=== PATIENT | female | born 1995 | race Caucasian/White ===

== ENCOUNTER 2016-07-12 20:41 | Inpatient (IN) | payer OTHER ==
--- OUTSIDE RECORDS SUMMARY | 2016-07-12 20:45 | XMS REPORT | Continuity of Care Document ---
:1995 Author Organization [facility] [place] [address] Care Team Providers Name Role Phone Provider, None Per Patient Primary Care Provider Unavailable Source Comments This disclosure is being made pursuant to the [employer] program and maynot contain all information available regarding this patient.[facility] Active Allergies and Adverse Reactions Not on File Current Medications Be aware that medications may not be up to date as of this document. Alwaysverify current medications with the patient. Prescription Sig. Disp. Refills Start Date End Date Status medroxyPROGESTERone Inject 150 mg Active (DEPO-PROVERA) 150 MG/ML into the muscle injection every 3 (three) months. 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[employer] Pulse 85 02/27/2012 8:17 AM MANAGER [employer] Temperature 36.7 C (98 F) 02/27/2012 8:17 AM MANAGER [employer] Respiratory Rate 17 02/27/2012 8:17 AM MANAGER [employer] Height - - Weight 63.504 kg (140 lb) 02/27/2012 3:20 AM MANAGER [employer]UG [employer]AFET[employer] Body Mass Index - - Oxygen Saturation 97% 02/27/2012 8:17 AM MANAGER [employer]UG [employer]AFET[employer] Plan of Care Health Maintenance Due Date Last Done Comments HPV Vaccine (9-26YO) (1 of 3 - Female/Unknown 3 Dose 11/25/2006 Series) Chlamydia Screening 02/26/2013 02/27/2012 Tetanus/Pertussis (1 - Tdap) 11/25/2014 Retired-INFLUENZA VACCINE 11/13/2015 Results from Last 3 Months Not on file
--- OUTSIDE RECORDS SUMMARY | 2016-07-12 20:45 | XMS REPORT | Continuity of Care Document ---
:1995 Author Organization [facility] ([facility]) Address [address] [place] [address] Phone [phone] Care Team Providers Name Role Phone Unavailable Primary Care Provider Unavailable Source Comments This disclosure is being made pursuant to the Care Everywhere program, applicable federal and state laws, and may not contain all informaitonavailable regarding this patient.[facility] ([facility]) Active Allergies and Adverse Reactions Not on File Current Medications Not on file Active Problems Not on file Social History Tobacco Use Types Packs/Day Years Used Date Never Assessed Plan of Care Health Maintenance Due Date Last Done Comments Hepatitis B Vaccine (1 of 3 - Primary Series) 1995 HPV Vaccine (1 of 3 - Female/Unknown 3 Dose Series) 11/25/2006 Tdap Vaccine 11/25/2006 Meningococcal Vaccine (1 of 1) 2011 Lipid Disorder Screening 11/25/2013 MMR Vaccine 11/25/2013 Td Vaccine 11/25/2013 Varicella Vaccine (1 of 2 - Adult - No Evidence of 11/25/2013 Immunity) Influenza Vaccine: Seasonal (#1) 10/13/2015 Results from Last 3 Months Not on file
--- OUTSIDE RECORDS SUMMARY | 2016-07-12 21:08 | XMS REPORT | Continuity of Care Document ---
:1995 Author Organization [facility] ([facility]) Address [address] [place] [address] Phone [phone] Care Team Providers Name Role Phone Unavailable Primary Care Provider Unavailable Source Comments This disclosure is being made pursuant to the Care Everywhere program, applicable federal and state laws, and may not contain all informaitonavailable regarding this patient.[facility] ([facility]) Active Allergies and Adverse Reactions Not [...]
--- OUTSIDE RECORDS SUMMARY | 2016-07-12 21:08 | XMS REPORT | Continuity of Care Document ---
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 Pulse 85 02/27/2012 8:17 AM MODELING MANAGER Temperature 36.7 C (98 F) 02/27/2012 8:17 AM MODELING MANAGER Respiratory Rate 17 02/27/2012 8:17 AM MODELING MANAGER Height - - Weight 63.504 kg (140 lb) 02/27/2012 3:20 AM MODELING MANAGER Body Mass Index - - Oxygen Saturation 97% 02/27/2012 8:17 AM MODELING MANAGER Plan of Care Health Maintenance Due Date Last Done Comments HPV Vaccine (9-26YO) (1 of 3 - Female/Unknown 3 Dose 11/25/2006 Series) Chlamydia Screening 02/26/2013 02/27/2012 Tetanus/Pertussis (1 - Tdap) 11/25/2014 Retired-INFLUENZA VACCINE 11/13/2015 Results from Last 3 Months Not on file
[2016-07-12] MEDS ORDERED: LIDOCAINE HCL 50 ML VIAL PERI PRN (21:09)
[2016-07-12] MEDS ORDERED: RINGERS SOLUTION,LACTATED 1,000 ML IV PRN (21:09)
[2016-07-12] MEDS ORDERED: RINGERS SOLUTION,LACTATED 1,000 ML IV ONE (21:09)
[2016-07-12] MEDS ORDERED: OXYTOCIN/DEXTROSE 5%-WATER 30 UNITS/500 ML BAG IV ONE ×2 (21:09→21:46)
[2016-07-12] MEDS ORDERED: BUPIVACAINE HCL/PF 30 ML VIAL EP ONE (21:11)
[2016-07-12] MEDS ORDERED: NALOXONE HCL 1 MG/1 ML SYRG IV PRN (21:11)
[2016-07-12] MEDS ORDERED: ONDANSETRON HCL/PF 2 MG/ML VIAL IV PRN (21:11)
[2016-07-12] MEDS ORDERED: BUPIVACAINE HCL/0.9 % NACL/PF 250 ML EP PRN (21:11)
[2016-07-12] MEDS ORDERED: HYDROCORTISONE 30 APPL TUBE TP PRN (21:46)
[2016-07-12] MEDS ORDERED: BISACODYL 10 MG SUPP.RECT RC PRN (21:46)
[2016-07-12] MEDS ORDERED: SENNOSIDES 8.6 MG TABLET PO PRN (21:46)
[2016-07-12] MEDS ORDERED: diphenhydrAMINE HCL 25 MG CAPSULE PO PRN (21:46)
[2016-07-12] MEDS ORDERED: BENZOCAINE/MENTHOL 81 SPRAY CAN TP PRN (21:46)
[2016-07-12 21:52] LABS: Hematocrit 36.1 % (37.0-47.0); Hemoglobin 12.5 gm/dL (12.5-16.0); Mean Corpuscular Hemoglobin 32.6 pg (27-31); Mean Corpuscular Hgb Conc 34.6 g/dl (32-36); Mean Platelet Volume 11.2 fl (6.0-9.5); Neutrophil # 8.9 K/mm3 (1.3-6.0); Neutrophil % 74.1 % (42-75.0); Platelet Count 169 K/mm3 (150-450); Red Blood Count 3.84 M/mm3 (4.2-5.4); Red Cell Distribution Width 12.9 % (11.5-14.0)
--- NOTE | 2016-07-12 22:16 | HP ---
Chief Complaint - Chief Complaint Date of Service: 07/12/16 Chief Complaint: contractions History of Present Illness: 20 yo, CF, at 40 weeks, admitted in labor with contractions started at noon today. She was dilated to 8 cm, 100% and +1 at admission. Denies bleeding or leaking fluid. care was with Dr. Mike at [facility] in [place], [place]. was complicated by perterm labor at 34 weeks , dilated to 3 cm then and received steroid x 2 doses and magnesium for tocolysis per patient. GBS was negative per patient. POBGYN: x 1, June 2015 (40.2 w, girl and no complications) - Patient's Past Medical History Patient History - Medical: No pertinent hx - Family History Mother Family History - Medical: No pertinent hx Father Family History - Medical: No pertinent hx Brother Family History - Medical: No pertinent hx Grandmother-Paternal Family History - Medical: No pertinent hx Grandfather-Paternal Family History - Medical: No pertinent hx Grandfather-Maternal Family History - Medical: No pertinent hx Grandmother-Maternal Family History - Medical: No pertinent hx - Social History Smoking Status: Current every day smoker Cigarettes Packs Per Day: 10 Alcohol Use: none Drug Use: none - Immunizations Immunizations Up to Date: Yes Hx Pneumococcal Vaccination: No History of Influenza Vaccine: No Review Of Systems (GEN) - Review of Systems Abdominal: Present: Abdominal Pain - contractions Genitourinary: Present: Other - no bleeding, no leaking fluid Misc: All systems neg except as marked Immunizations: IMMUNIZATION HX Immunizations Up to Date Yes History of Influenza Vaccine No Hx Pneumococcal Vaccination No Allergies/Adverse Reactions: Allergies Allergy/AdvReac Type Severity Reaction Status Date / Time No Known Allergies Allergy Verified 07/12/16 21:07 Home Medications: HOME MEDICATIONS Vit#96/Ferrous Fum/FA [ S] 1 tab PO DAILY 06/23/15 [Last Taken 07/12/16] Exam - Exam Vital Signs: Vital Signs - Last Taken Temp 36.4 C L 06/25/15 06:50 Pulse Resp BP 105/59 06/25/15 06:50 Pulse Ox Constitutional: Present: Alert, Oriented x3, Cooperative Breasts: Present: Exam deferred Respiratory: Present: lungs clear, normal breath sounds, no respiratory distress Cardiovascular/Chest: Present: normal peripheral pulses, regular rate, rhythm, no gallop, no murmur Abdomen: Present: soft, nontender, nondistended, other - gravid /Rectal: Present: Other - cervix: dilated to 8 cm, 100%, +1 Extremity: Present: normal range of motion, no pedal edema, no calf tenderness Skin Exam: Present: normal color, warm/dry, no cyanosis Appearance: Present: appropriate appearance Eye contact: Present: cooperative, good eye contact, normal speech Diagnostic Studies: Abnormal Lab Results 07/12/16 Range/Units 21:50 WBC 12.0 H (4.0-10.5) K/mm3 RBC 3.84 L (4.2-5.4) M/mm3 Hct 36.1 L (37.0-47.0) % MCH 32.6 H (27-31) pg MPV 11.2 H (6.0-9.5) fl Immature Gran % (Auto) 0.50 H (0.001-0.429) % Immature Gran # (Auto) 0.06 H (0.000-0.0310) K/mm3 Lymphocytes % 19.8 L (20-51) % Neutrophils # 8.9 H (1.3-6.0) K/mm3 Laboratory Results WBC 12.0 K/mm3 (4.0-10.5) H 07/12/16 21:50 RBC 3.84 M/mm3 (4.2-5.4) L 07/12/16 21:50 Hgb 12.5 gm/dL (12.5-16.0) 07/12/16 21:50 Hct 36.1 % (37.0-47.0) L 07/12/16 21:50 MCV 94.0 fl (78-100) 07/12/16 21:50 MCH 32.6 pg (27-31) H 07/12/16 21:50 MCHC 34.6 g/dl (32-36) 07/12/16 21:50 RDW 12.9 % (11.5-14.0) 07/12/16 21:50 Plt Count 169 K/mm3 (150-450) 07/12/16 21:50 MPV 11.2 fl (6.0-9.5) H 07/12/16 21:50 Immature Gran % (Auto) 0.50 % (0.001-0.429) H 07/12/16 21:50 Immature Gran # (Auto) 0.06 K/mm3 (0.000-0.0310) H 07/12/16 21:50 Neutrophils % 74.1 % (42-75.0) 07/12/16 21:50 Lymphocytes % 19.8 % (20-51) L 07/12/16 21:50 Monocytes % 4.5 % (0.0-9) 07/12/16 21:50 Eosinophils % 0.8 % (0.0-3.0) 07/12/16 21:50 Basophils % 0.3 % (0.0-1.0) 07/12/16 21:50 Nucleated RBC % 0.0 k/mm3 (0-1) 07/12/16 21:50 Neutrophils # 8.9 K/mm3 (1.3-6.0) H 07/12/16 21:50 Lymphocytes # 2.4 k/mm3 (1.5-3.5) 07/12/16 21:50 Monocytes # 0.5 k/mm3 (0.0-1.0) 07/12/16 21:50 Eosinophils # 0.1 k/mm3 (0.0-0.7) 07/12/16 21:50 Absolute Basophils 0.0 k/mm3 (0.0-0.1) 07/12/16 21:50 labs 05/28/16: blood type: O pos hgb 11.3 hct 33.1 rubella immune VDRL neg UDS neg HBSAg neg Hep C neg HIV neg GBS (06/13/16): neg Assessment/Plan - Narrative Narrative: FHR: reassuring Kyle: contraction Q1-2 min A: 20 yo, CF, at 40 weeks in labor, dilated to 8 cm, cephalic, GBS neg. S/ p steroid x 2 at 34 w for labor. Plan: admit labs CBC, type and screen. IV with LR bolus, then 125 ml/h. epidural if time permitted. expect vaginal delivery soon. Jose Sykes MD
--- NOTE | 2016-07-12 22:29 | OR ---
Operative Report - Dictated Report Narrative: Spontaneous Vaginal Delivery Note: 20 yo, CF, at 40 weeks, admitted in labor, cervix dilated to 8 cm, 100% effaced and at +1. GBS was negative. care at [facility] in [place], [place]. was complicated by labor at 34 weeks and received steroid x 2 doses at the time. Patient progressed to complete quickly without complications. The perineum was cleaned with betadine. AROM performed before delivery with small cloudy fluid, but no meconium. Pushed with contractions and descent. Head delivered in OA over the perineum. Tight nuchal cord x 1 reduced after head delivered. The anterior shoulder delivered, followed by the posterior shoulder and the rest of the baby without difficulty. Baby cried at perineum. Mouth and nose were bulb-suctioned. Cord was clamped, and then cut by the patient herself. Baby placed on maternal abdomen for drying and care by the nursing. Cord blood was obtained. Placenta delivered intact with 3 vessel cord. Pitocin drip started after placenta delivered. Exam of the perineum, vaginal and cervix revealed intact perineum without any laceration. Fundus was massaged and firm. Bleeding was minimal. Mother and baby tolerated the delivery well. EBL 100 ml. Infant: female, 3022 grams, 6 lbs and 10.5 oz. 8/9. Time of delivery: 21: 18. Jose Sykes MD History for Definition: * The number of deliveries resulting in a live the patient experienced prior to current hospitalization * The previous delivery of live twins or any live multiple gestation is considered one live event. *If primagravida or nulliparous is documented select zero for the number of previous live births. Live Events: 1
[2016-07-12 22:59] LABS: Cocaine Ur Negative (NEGATIVE); Urine Barbiturate Negative (NEGATIVE); Urine Benzodiazepines Negative (NEGATIVE); Urine Opiates Negative (NEGATIVE); Urine PCP Negative (NEGATIVE); Urine THC Negative (NEGATIVE)
[2016-07-13] MEDS: IBUPROFEN 800 MG TABLET PO PRN ×3 (00:23→17:43)
[2016-07-13] MEDS: HYDROcodone/ACETAMINOPHEN 1 EACH TABLET PO PRN ×5 (01:08→22:21)
[2016-07-13] MEDS: DOCUSATE SODIUM 100 MG CAPSULE PO SCH ×2 (10:49→22:21)
--- NOTE | 2016-07-13 17:28 | PN ---
Subjective - Date and Time Seen Date: 07/13/16 Subjective Narrative: day 1, s/p doing well. . normal lochia. ambulating well. Objective - Vitals Vitals: Last Vital Signs Temp 36.9 C 07/13/16 06:30 Pulse 79 07/13/16 06:30 Resp 20 07/13/16 06:30 BP 106/50 07/13/16 06:30 Pulse Ox 96 07/13/16 06:30 - Abnormal Lab Findings Abnormal Lab Findings: Abnormal Lab Results 07/12/16 Range/Units 21:50 WBC 12.0 H (4.0-10.5) K/mm3 RBC 3.84 L (4.2-5.4) M/mm3 Hct 36.1 L (37.0-47.0) % MCH 32.6 H (27-31) pg MPV 11.2 H (6.0-9.5) fl Immature Gran % (Auto) 0.50 H (0.001-0.429) % Immature Gran # (Auto) 0.06 H (0.000-0.0310) K/mm3 Lymphocytes % 19.8 L (20-51) % Neutrophils # 8.9 H (1.3-6.0) K/mm3 - Exam Constitutional: Present: Alert, Oriented x3, Cooperative Respiratory: Present: no respiratory distress Cardiovascular/Chest: Present: normal peripheral pulses Abdomen: Present: soft, nontender, nondistended, other - fundus firm at umbilicus Extremity: Present: normal range of motion, no pedal edema, no calf tenderness Eye contact: Present: cooperative, good eye contact, normal speech Assessment/Plan Plan Narrative: A: PPD#1, s/p stable and well. Plan: routine care. Jose Sykes MD
[2016-07-14] MEDS: IBUPROFEN 800 MG TABLET PO PRN ×2 (00:08→07:23)
[2016-07-14] MEDS: HYDROcodone/ACETAMINOPHEN 1 EACH TABLET PO PRN ×3 (02:20→10:39)
[2016-07-14 08:04] VITALS: BP 102/54
--- NOTE | 2016-07-14 09:57 | PN ---
Subjective - Date and Time Seen Date: 07/14/16 Subjective Narrative: day 2, s/p doing well. no complaints. . normal lochia. Objective - Vitals Vitals: Last Vital Signs Temp 35.9 C L 07/14/16 08:03 Pulse 84 07/14/16 08:03 Resp 16 07/14/16 08:03 BP 102/54 07/14/16 08:03 Pulse Ox 98 07/14/16 08:03 - Exam Constitutional: Present: Alert, Oriented x3, Cooperative Respiratory: Present: no respiratory distress Cardiovascular/Chest: Present: normal peripheral pulses Abdomen: Present: soft, nontender, nondistended, other - fundus firm below umbilicus Extremity: Present: normal range of motion, no pedal edema, no calf tenderness Skin Exam: Present: normal color, warm/dry, no cyanosis Eye contact: Present: cooperative, good eye contact, normal speech Assessment/Plan Plan Narrative: A: PPD#2, s/p stable and well. Plan: will discharge patient home today. Jose Sykes MD
[2016-07-14] MEDS: DOCUSATE SODIUM 100 MG CAPSULE PO SCH (10:39)
== END 2016-07-14 16:15 | disposition home or self-care (01) | DRG 775 ==
LOC: OBCLINIC 20:41 → MS 21:04 → OB 21:04 → UNDOADMIN 21:04 → MS 07-13 18:30 → UNDOADMIN 07-13 18:30
PROVIDERS: ADMIT Obstetrics & Gynecology; ATTEND Obstetrics & Gynecology
PROC: 10E0XZZ Delivery of Products of Conception, External Approach (ICD-10-PCS; principal; 2016-07-12)
PROC: 10907ZC Drainage of Amniotic Fluid, Therapeutic from Products of Conception, Via Natural or Artificial Opening (ICD-10-PCS; 2016-07-12)
PROC: 4A1HXCZ Monitoring of Products of Conception, Cardiac Rate, External Approach (ICD-10-PCS; 2016-07-12)
DX: O69.1XX0 Labor and delivery complicated by cord around neck, with compression, not applicable or unspecified (principal); O99.334 Smoking (tobacco) complicating childbirth; Z3A.40 40 weeks gestation of pregnancy; Z37.0 Single live birth